=== PATIENT | female | born 1970 | race Caucasian/White ===

== ENCOUNTER 2017-02-09 17:34 | Emergency (ER) | payer OTHER ==
[2017-02-09] MEDS ORDERED: prednisoLONE Soln 15 MG/5 ML UD Cup PO ONE (18:08)
--- NOTE | 2017-02-09 18:08 | EDM.PDOC ---
ED HPI GENERAL MEDICAL PROBLEM - General Chief Complaint: ENT Problem Stated Complaint: PT HAS SORE THROAT Time Seen by Provider: 02/09/17 18:06 Source of Information: Reports: Patient History Limitations: Reports: No Limitations - History of Present Illness INITIAL COMMENTS - FREE TEXT/NARRATIVE: HISTORY AND PHYSICAL: [46-year-old female presenting with sore throat it has been waxing and waning for over a week History of Present Illness: [Has difficulty with swallowing] Review of Systems: As per history of present illness and below otherwise all systems reviewed and negative. Past medical history: As per history of present illness and as reviewed below otherwise noncontributory. Surgical history: As per history of present illness and as reviewed below otherwise noncontributory. Social history: No reported history of drug or alcohol abuse. Family history: As per history of present illness and as reviewed below otherwise noncontributory. Physical exam: Alert and oriented. Answering questions appropriately HEENT: Atraumatic, normocehpalic, pupils reactive, negative for conjunctival pallor or scleral icterus, mucous membranes moist, throat erythematous neck supple, tender, trachea midline. Lungs: Clear to auscultation, breath sounds equal bilaterally, chest non tender. Heart: S1S2, regular, negative for clicks, rubs, or JVD. Abdomen: Soft, nondistended, nontender. Negative for masses or hepatossplenmegaly. Negative for costovertebral tenderness. Pelvis: Stable nontender. Genitourinary: Deferred. Rectal: Deferred Extremities: Atraumatic, negative for cords or calf pain. Neurovascular unremarkable. Neuro: Awake, alert, oriented. Cranial nerves II through XII unremarkable. Cerebellum unremarkable. Motor and sensory unremarkable throughout. Exam nonfocal. Diagnostics: [] Therapeutics: [Prednisolone] Impression: [Acute pharyngitis] Plan: [Pen-Vee K Followup with PCP] Definitive disposition and diagnosis as appropriate pending reevaluation and review of above. Onset: Sudden Duration: Day(s): Location: Reports: Other (Throat) Quality: Reports: Throbbing Severity: Moderate Improves with: Reports: None Associated Symptoms: Reports: No Other Symptoms Throat Pain Score (Numeric/FACES): 5 - Related Data Allergies Allergy/AdvReac Type Severity Reaction Status Date / Time No Known Allergies Allergy Verified 02/09/17 17:48 Home Meds: Home Meds Penicillin V Potassium [IJD: Penicillin V Potassium] 500 mg PO .EVERY 6 HOURS # 30 tab 02/09/17 [Rx] Past Medical History - Past Health History Medical/Surgical History: Denies Medical/Surgical History Social & Family History - Family History Family Medical History: Noncontributory - Tobacco Use Smoking Status *Q: Current Every Day Smoker Years of Tobacco use: 30 Packs/Tins Daily: 1 Used Tobacco, but Quit: No - Caffeine Use Caffeine Use: Reports: None - Alcohol Use Days Per Week of Alcohol Use: 0 - Recreational Drug Use Recreational Drug Use: No ED ROS ENT - Review of Systems Review Of Systems: ROS reveals no pertinent complaints other than HPI. ED EXAM, ENT - Physical Exam Exam: See Below (See dictation) Course - Vital Signs Last Recorded V/S: Last Vital Signs Temp 36.6 C 02/09/17 17:45 Pulse 88 02/09/17 17:45 Resp 16 02/09/17 17:45 BP 113/79 02/09/17 17:45 Pulse Ox 97 02/09/17 17:45 - Orders/Labs/Meds Orders: Active Orders 24 hr Category Date Time Status CULTURE STREP A CONFIRMATION [RM] Stat Lab 02/09/17 17:45 Results STREP SCRN A RAPID W CULT CONF [RM] Stat Lab 02/09/17 17:45 Results Meds: Medications Discontinued Medications Generic Name Dose Route Start Last Admin Trade Name Fahadq PRN Reason Stop Dose Admin Prednisolone 30 mg 02/09/17 18:08 02/09/17 18:13 Orapred 15 Mg/5ml Soln PO 02/09/17 18:09 30 mg ONETIME ONE Administration Departure - Departure Time of Disposition: 18:25 Disposition: Home, Self-Care 01 Condition: good Clinical Impression: Pharyngitis Qualifiers: Pharyngitis/tonsillitis etiology: unspecified etiology Qualified Code(s): J02.9 - Acute pharyngitis, unspecified - Discharge Information Prescriptions: Penicillin V Potassium [IJD: Penicillin V Potassium] 500 mg PO .EVERY 6 HOURS # 30 tab Referrals: PCP,None [Primary Care Provider] - Forms: ED Department Discharge Additional Instructions: The following information is given to patients seen in the emergency department who are being discharged to home. This information is to outline your options for follow-up care. We provide all patients seen in our emergency department with a follow-up referral. The need for follow-up, as well as the timing and circumstances, are variable depending upon the specifics of your emergency department visit. If you don't have a primary care physician on staff, we will provide you with a referral. We always advise you to contact your personal physician following an emergency department visit to inform them of the circumstance of the visit and for follow-up with them and/or the need for any referrals to a consulting specialist. The emergency department will also refer you to a specialist when appropriate. This referral assures that you have the opportunity for followup care with a specialist. All of these measure are taken in an effort to provide you with optimal care, which includes your followup. Under all circumstances we always encourage you to contact your private physician who remains a resource for coordinating your care. When calling for followup care, please make the office aware that this follow-up is from your recent emergency room visit. If for any reason you are refused follow-up, please contact the [facility] emergency department at and asked to speak to the emergency department charge nurse. Discussion and written for Jaime Crowe every 6 hours With her primary care provider - My Orders Last 24 Hours: My Active Orders 02/09/17 17:45 CULTURE STREP A CONFIRMATION [RM] Stat STREP SCRN A RAPID W CULT CONF [RM] Stat - Assessment/Plan Last 24 Hours: My Active Orders 02/09/17 17:45 CULTURE STREP A CONFIRMATION [RM] Stat STREP SCRN A RAPID W CULT CONF [RM] Stat
[2017-02-09 19:13] VITALS: BP 117/70
== END 2017-02-09 18:32 | disposition home or self-care (01) ==
LOC: MW.ED 17:34
DX: J02.9 Acute pharyngitis, unspecified (principal); F17.210 Nicotine dependence, cigarettes, uncomplicated
CPT/HCPCS: 87081; 87880; 99283; A9270

== ENCOUNTER 2017-03-14 16:38 | Emergency (ER) | payer OTHER ==
[2017-03-14] MEDS ORDERED: Lidocaine 1% with EPINEPHrine 1:100,000 20 ML MDV INJECT ONE (16:50)
[2017-03-14] MEDS ORDERED: Ketorolac 60 MG/2 ML SDV IM ONE (16:54)
[2017-03-14 16:59] VITALS: BP 123/64
[2017-03-14] MEDS: cefTRIAXone 2,000 MG, Lidocaine 1% 2.1 ML IM ONE ×2 (17:22)
--- NOTE | 2017-03-14 17:37 | EDM.PDOC ---
ED HPI GENERAL MEDICAL PROBLEM - General Chief Complaint: Skin Complaint Stated Complaint: PT HAS BOIL ON BUTTOCKS Time Seen by Provider: 03/14/17 16:40 Source of Information: Reports: Patient History Limitations: Reports: No Limitations - History of Present Illness INITIAL COMMENTS - FREE TEXT/NARRATIVE: History of present illness: [46-year-old female comes in complaining of abscess to left buttock cheek. Indicates she had tried using hydrogen peroxide as well as hot packs and she feels now that she might need some antibiotics.] Review of systems: As per history of present illness and below otherwise all systems reviewed and negative. Past medical history: As per history of present illness and as reviewed below otherwise noncontributory. Surgical history: As per history of present illness and as reviewed below otherwise noncontributory. Social history: No reported history of drug or alcohol abuse. Family history: As per history of present illness and as reviewed below otherwise noncontributory. Physical exam: HEENT: Atraumatic, normocephalic, pupils reactive, negative for conjunctival pallor or scleral icterus, mucous membranes moist, throat clear, neck supple, nontender, trachea midline. Lungs: Clear to auscultation, breath sounds equal bilaterally, chest nontender. Heart: S1S2, regular, negative for clicks, rubs, or JVD. Abdomen: Soft, nondistended, nontender. Negative for masses or hepatosplenomegaly. Negative for costovertebral tenderness. Pelvis: Stable nontender. Genitourinary: Deferred. Rectal: Deferred. Extremities: Atraumatic, negative for cords or calf pain. Neurovascular unremarkable. Neuro: Awake, alert, oriented. Cranial nerves II through XII unremarkable. Cerebellum unremarkable. Motor and sensory unremarkable throughout. Exam nonfocal. Skin: 2 cm round indurated erythematous abscess with some fluctuance noted. Area cleaned with Betadine and prepped with lidocaine 1% with epi injected until anesthesia was appreciated subsequently an 11 blade used to make a incision of approximately 1 cm long with moderate amount of purulent thick waxy discharge culture obtained area packed with one-inch tape gauze. Antibiotics given Diagnostics: [Culture] Therapeutics: [I&D, ceftriaxone 2 g, Toradol 60 mg IM, lidocaine with epi] Impression: [Abscess] Plan: [Bactrim brief run of pain medicine] Definitive disposition and diagnosis as appropriate pending reevaluation and review of above. 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: Musculoskeletal History: Reports: None Neurological History: Reports: None Psychiatric History: Reports: None Endocrine/Metabolic History: Reports: None Hematologic History: Reports: None Immunologic History: Reports: None Dermatologic History: Reports: None - Infectious Disease History Infectious Disease History: Reports: None - Past Surgical History Female Surgical History: Reports: Cystectomy Social & Family History - Family History Family Medical History: Noncontributory - Tobacco Use Smoking Status *Q: Current Every Day Smoker Years of Tobacco use: 30 Packs/Tins Daily: 0.7 Used Tobacco, but Quit: No - Caffeine Use Caffeine Use: Reports: None - Alcohol Use Days Per Week of Alcohol Use: 0 - Recreational Drug Use Recreational Drug Use: No ED ROS GENERAL - Review of Systems Review Of Systems: See Below (See history of present illness) ED EXAM, SKIN/RASH Exam: See Below (See history of present illness) Course - Vital Signs Last Recorded V/S: Last Vital Signs Temp 36.6 C 03/14/17 16:50 Pulse 92 03/14/17 16:50 Resp 18 03/14/17 16:50 BP 123/64 03/14/17 16:50 Pulse Ox 96 03/14/17 16:50 - Orders/Labs/Meds Meds: Medications Discontinued Medications Generic Name Dose Route Start Last Admin Trade Name Freq PRN Reason Stop Dose Admin Ceftriaxone Sodium 2,000 mg/ 0 mg 03/14/17 16:54 03/14/17 17:22 Lidocaine HCl 2.1 ml IM 03/14/17 16:55 1 gm ONETIME ONE Administration Ketorolac Tromethamine 60 mg 03/14/17 16:54 03/14/17 17:18 Toradol IM 03/14/17 16:55 60 mg ONETIME ONE Administration Lidocaine/Epinephrine 20 ml 03/14/17 16:50 03/14/17 17:16 Xylocaine 1% With Epinephrine 1:100,000 INJECT 03/14/17 16:51 20 ml ONETIME ONE Administration Departure - Departure Time of Disposition: 17:36 Disposition: Home, Self-Care 01 Condition: Good Clinical Impression: Abscess - Discharge Information Forms: ED Department Discharge Additional Instructions: The following information is given to patients seen in the emergency department who are being discharged to home. This information is to outline your options for follow-up care. We provide all patients seen in our emergency department with a follow-up referral. The need for follow-up, as well as the timing and circumstances, are variable depending upon the specifics of your emergency department visit. If you don't have a primary care physician on staff, we will provide you with a referral. We always advise you to contact your personal physician following an emergency department visit to inform them of the circumstance of the visit and for follow-up with them and/or the need for any referrals to a consulting specialist. The emergency department will also refer you to a specialist when appropriate. This referral assures that you have the opportunity for follow-up care with a specialist. All of these measure are taken in an effort to provide you with optimal care, which includes your follow-up. Under all circumstances we always encourage you to contact your private physician who remains a resource for coordinating your care. When calling for follow-up care, please make the office aware that this follow-up is from your recent emergency room visit. If for any reason you are refused follow-up, please contact the [facility] Emergency Department at and asked to speak to the emergency department charge nurse. Take medication as directed Follow-up with the PCP 1-2 days Return to ED as needed as discussed My family practice
== END 2017-03-14 17:51 | disposition home or self-care (01) ==
LOC: MW.ED 16:38
DX: L02.31 Cutaneous abscess of buttock (principal); F17.210 Nicotine dependence, cigarettes, uncomplicated
CPT/HCPCS: 10061; 87070; 87077; 87186; 96372; 99283; J0696; J1885

== ENCOUNTER 2017-05-18 13:45 | Emergency (ER) | payer OTHER ==
[2017-05-18 14:25] VITALS: BP 135/85
== END 2017-05-18 14:30 | disposition left against medical advice (07) ==
LOC: MW.ED 13:45
DX: Z53.21 Procedure and treatment not carried out due to patient leaving prior to being seen by health care provider (principal)
CPT/HCPCS: 99281

== ENCOUNTER 2017-07-16 17:56 | Observation (INO) | payer MEDICAID, OTHER ==
[2017-07-16] MEDS ORDERED: Sodium Chloride 0.9% 10 ML Syringe FLUSH PRN (18:35)
[2017-07-16] MEDS ORDERED: Sodium Chloride 0.9% 1,000 ML IV ONE (18:35)
[2017-07-16] MEDS ORDERED: Sodium Chloride 0.9% 2.5 ML Syringe FLUSH PRN (18:35)
--- NOTE | 2017-07-16 18:40 | EDM.PDOC ---
ED HPI GENERAL MEDICAL PROBLEM - General Chief Complaint: Syncope Stated Complaint: TROUBLE BREATHING Time Seen by Provider: 07/16/17 18:28 - History of Present Illness INITIAL COMMENTS - FREE TEXT/NARRATIVE: HISTORY AND PHYSICAL: History of present illness: The patient is a 46-year-old female who presents via EMS after having a syncopal event this evening. Patient says she had a normal day but did not eat very much today having only a peanut butter rollup and small amount of liquid and she says that she was in her garage when she started feeling lightheaded held onto something and then passed out A neighbor found her and called EMS. On their arrival she was awake alert and oriented and had no complaints. Patient in the ED denies any complaints of headache neck or back pain chest pain shortness of breath abdominal pain nausea vomiting or extremity complaints. She has had no urine complaints over the last few days no nausea or vomiting no fevers or chills or upper respiratory symptoms. Patient has no neurosensory changes in her extremities. Patient that she has never had a syncopal event before. Patient states she smokes cigarettes and denies drug use. Patient currently feels at her baseline. Review of systems: As per history of present illness and below otherwise all systems reviewed and negative. Past medical history: As per history of present illness and as reviewed below otherwise noncontributory. Surgical history: As per history of present illness and as reviewed below otherwise noncontributory. Social history: No reported history of drug or alcohol abuse. Family history: As per history of present illness and as reviewed below otherwise noncontributory. Physical exam: General: Well-developed well-nourished female who moves easily in the ED without distress. Vital signs been reviewed by me. HEENT: Atraumatic, normocephalic, pupils reactive, negative for conjunctival pallor or scleral icterus, mucous membranes moist, throat clear, neck supple, nontender, trachea midline. there is no scalp tenderness defects or deformities and there are no midline step-offs in his defects of the cervical spine Lungs: Clear to auscultation, breath sounds equal bilaterally, chest nontender. Heart: S1S2, regular rate and rhythm no overt murmurs Abdomen: Soft, nondistended, nontender. Negative for masses or hepatosplenomegaly. Negative for costovertebral tenderness. Pelvis: Stable nontender. Genitourinary: Deferred. Rectal: Deferred. Extremities: Atraumatic, negative for cords or calf pain. Neurovascular unremarkable. range of motion without defects or deficits Neuro: Awake, alert, oriented. Cranial nerves II through XII unremarkable. Cerebellum unremarkable. Motor and sensory unremarkable throughout. Exam nonfocal. manager software strength is intact bilaterally 5/5, dorsi and plantar flexion is intact 5/5 inclusive of the great toe, there is no evidence of any drift seen and speech is intact. Back: There are no midline step-offs in his defects of the thoracic or lumbar spine no posterior rib tenderness no posterior pelvis tenderness and no visible evidence of any soft tissue traumatic injury such as abrasions contusions or ecchymosis. Skin: There are no soft tissue injury seen head to toe and turgor is normal Diagnostics: EKG orthostatic vitals CBC CMP INR and d-dimer troponin TSH UA chest x-ray CT scan of the head Therapeutics: IV O2 monitor IV fluids 1904: Case was discussed with our hospitalist, Dr. Elder, who accepts the patient for observation admission. We are currently awaiting the CMP TSH and UA results. He will follow up these test results. I discussed all testing results with the patient who is aware of my concerns and need for admission and accepts Impression: Syncopal event Definitive disposition and diagnosis as appropriate pending reevaluation and review of above. - Related Data Allergies Allergy/AdvReac Type Severity Reaction Status Date / Time No Known Allergies Allergy Verified 07/16/17 18:01 Home Meds: Home Meds . 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: Musculoskeletal History: Reports: None Neurological History: Reports: None Psychiatric History: Reports: None Endocrine/Metabolic History: Reports: None Hematologic History: Reports: None Immunologic History: Reports: None Oncologic (Cancer) History: Reports: None Dermatologic History: Reports: None - Infectious Disease History Infectious Disease History: Reports: None - Past Surgical History Head Surgeries/Procedures: Reports: None HEENT Surgical History: Reports: None Cardiovascular Surgical History: Reports: None Respiratory Surgical History: Reports: None GI Surgical History: Reports: None Female Surgical History: Reports: Cystectomy Musculoskeletal Surgical History: Reports: None Oncologic Surgical History: Reports: None Social & Family History - Family History Family Medical History: Noncontributory - Tobacco Use Smoking Status *Q: Current Every Day Smoker Years of Tobacco use: 40 Packs/Tins Daily: 0.5 Used Tobacco, but Quit: No - Caffeine Use Caffeine Use: Reports: None - Alcohol Use Days Per Week of Alcohol Use: 0 - Recreational Drug Use Recreational Drug Use: No ED ROS GENERAL - Review of Systems Review Of Systems: ROS reveals no pertinent complaints other than HPI. ED EXAM, GENERAL - Physical Exam Exam: See Below (See dictation) Course - Vital Signs Last Recorded V/S: Last Vital Signs Temp 36.1 C 07/16/17 18:01 Pulse 94 07/16/17 18:01 Resp 18 07/16/17 18:01 BP 113/70 07/16/17 18:01 Pulse Ox 96 07/16/17 18:01 Orthostatic Blood Pressure [ 119/68 Standing] Orthostatic Blood Pressure [ 124/68 Sitting] Orthostatic Blood Pressure [ 113/70 Supine] - Orders/Labs/Meds Orders: Active Orders 24 hr Category Date Time Status Patient Status [ADT] Stat ADT 07/16/17 19:27 Ordered Cardiac Monitoring [RC] . DIRECTED Care 07/16/17 18:34 Active EKG Documentation Completion [RC] STAT Care 07/16/17 18:34 Active Orthostatic Vital Signs [RC] ASDIRECTED Care 07/16/17 18:35 Active Oxygen Therapy, ED [RC] ASDIRECTED Care 07/16/17 18:34 Active Pulse Oximetry [RC] ASDIRECTED Care 07/16/17 18:34 Active Chest 1V Frontal [CR] Stat Exams 07/16/17 18:35 Taken Head wo Cont [CT] Stat Exams 07/16/17 18:35 Taken COMPREHENSIVE METABOLIC PN,CMP [CHEM] Stat Lab 07/16/17 18:44 Results TROPONIN I [CHEM] Stat Lab 07/16/17 18:44 Results TSH [CHEM] Stat Lab 07/16/17 18:44 Results UA W/MICROSCOPIC [URIN] Stat Lab 07/16/17 18:35 Uncollected Sodium Chloride 0.9% [Normal Saline] 1,000 ml Med 07/16/17 18:35 Active IV STAT Sodium Chloride 0.9% [Saline Flush] Med 07/16/17 18:35 Active 10 ml FLUSH ASDIRECTED PRN Sodium Chloride 0.9% [Saline Flush] Med 07/16/17 18:35 Active 2.5 ml FLUSH ASDIRECTED PRN Saline Lock Insert [OM.PC] Stat Oth 07/16/17 18:34 Ordered Medication Orders Sodium Chloride (Normal Saline) 1,000 mls @ 999 mls/hr IV STAT ONE Stop: 07/16/17 19:35 Sodium Chloride (Saline Flush) 10 ml FLUSH ASDIRECTED PRN PRN Reason: Keep Vein Open Sodium Chloride (Saline Flush) 2.5 ml FLUSH ASDIRECTED PRN PRN Reason: Keep Vein Open Labs: Laboratory Tests 07/16/17 07/16/17 07/16/17 Range/Units 18:44 18:44 18:44 WBC 15.46 H (4.0-11.0) K/uL RBC 5.09 (4.30-5.90) M/uL Hgb 15.0 (12.0-16.0) g/dL Hct 44.9 (36.0-46.0) % MCV 88.2 (80.0-98.0) fL MCH 29.5 (27.0-32.0) pg MCHC 33.4 (31.0-37.0) g/dL RDW Std Deviation 42.9 (28.0-62.0) fl RDW Coeff of Gilda 13 (11.0-15.0) % Plt Count 266 (150-400) K/uL MPV 10.90 (7.40-12.00) fL Neut % (Auto) 81.0 H (48.0-80.0) % Lymph % (Auto) 11.6 L (16.0-40.0) % [place] % (Auto) 5.9 (0.0-15.0) % Eos % (Auto) 1.2 (0.0-7.0) % Baso % (Auto) 0.3 (0.0-1.5) % Neut # (Auto) 12.5 H (1.4-5.7) K/uL Lymph # (Auto) 1.8 (0.6-2.4) K/uL [place] # (Auto) 0.9 H (0.0-0.8) K/uL Eos # (Auto) 0.2 (0.0-0.7) K/uL Baso # (Auto) 0.0 (0.0-0.1) K/uL Nucleated RBC % 0.0 /100WBC Nucleated RBCs # 0 K/uL INR 1.05 (0.86-1.11) D-Dimer, Quantitative 0.24 (0.0-0.52) mg/LFEU Sodium 137 (136-146) mmol/L Potassium 4.0 (3.5-5.1) mmol/L Chloride 106 (98-110) mmol/L Carbon Dioxide 25 (21-31) mmol/L BUN 14 (6.0-23.0) mg/dL Creatinine 0.8 (0.6-1.5) mg/dL Est Cr Clr Drug Dosing 100.85 mL/min Estimated GFR (MDRD) > 60.0 ml/min Glucose 108 (60-110) mg/dL Calcium 9.3 (8.8-10.8) mg/dL Total Bilirubin 0.4 (0.1-1.5) mg/dL AST 16 (5-40) IU/L ALT 14 (8-54) IU/L Alkaline Phosphatase 76 (40-150) Troponin I < 0.10 (0.0-0.29) NG/ML Total Protein 7.1 (6.0-8.0) g/dL Albumin 4.0 (3.5-5.0) g/dL Globulin 3.1 (2.0-3.5) g/dL Albumin/Globulin Ratio 1.3 (1.3-2.8) Meds: Medications Generic Name Dose Route Start Last Admin Trade Name Freq PRN Reason Stop Dose Admin Sodium Chloride 1,000 mls @ 999 mls/hr 07/16/17 18:35 Normal Saline IV 07/16/17 19:35 STAT ONE Sodium Chloride 10 ml 07/16/17 18:35 Saline Flush FLUSH ASDIRECTED PRN Keep Vein Open Sodium Chloride 2.5 ml 07/16/17 18:35 Saline Flush FLUSH ASDIRECTED PRN Keep Vein Open Departure - Departure Time of Disposition: 19:29 Disposition: Refer to Observation Condition: Good Clinical Impression: Syncope Qualifiers: Syncope type: unspecified Qualified Code(s): R55 - Syncope and collapse - Discharge Information Forms: ED Department Discharge - My Orders Last 24 Hours: My Active Orders 07/16/17 18:34 Cardiac Monitoring [RC] . DIRECTED EKG Documentation Completion [RC] STAT Oxygen Therapy, ED [RC] ASDIRECTED Pulse Oximetry [RC] ASDIRECTED Saline Lock Insert [OM.PC] Stat 07/16/17 18:35 Orthostatic Vital Signs [RC] ASDIRECTED Chest 1V Frontal [CR] Stat Head wo Cont [CT] Stat UA W/MICROSCOPIC [URIN] Stat Sodium Chloride 0.9% [Normal Saline] 1,000 ml IV STAT Sodium Chloride 0.9% [Saline Flush] 10 ml FLUSH ASDIRECTED PRN Sodium Chloride 0.9% [Saline Flush] 2.5 ml FLUSH ASDIRECTED PRN 07/16/17 18:44 COMPREHENSIVE METABOLIC PN,CMP [CHEM] Stat TROPONIN I [CHEM] Stat TSH [CHEM] Stat 07/16/17 19:27 Patient Status [ADT] Stat - Assessment/Plan Last 24 Hours: My Active Orders 07/16/17 18:34 Cardiac Monitoring [RC] . DIRECTED EKG Documentation Completion [RC] STAT Oxygen Therapy, ED [RC] ASDIRECTED Pulse Oximetry [RC] ASDIRECTED Saline Lock Insert [OM.PC] Stat 07/16/17 18:35 Orthostatic Vital Signs [RC] ASDIRECTED Chest 1V Frontal [CR] Stat Head wo Cont [CT] Stat UA W/MICROSCOPIC [URIN] Stat Sodium Chloride 0.9% [Normal Saline] 1,000 ml IV STAT Sodium Chloride 0.9% [Saline Flush] 10 ml FLUSH ASDIRECTED PRN Sodium Chloride 0.9% [Saline Flush] 2.5 ml FLUSH ASDIRECTED PRN 07/16/17 18:44 COMPREHENSIVE METABOLIC PN,CMP [CHEM] Stat TROPONIN I [CHEM] Stat TSH [CHEM] Stat 07/16/17 19:27 Patient Status [ADT] Stat
[2017-07-16 19:27] LABS: CHLORIDE,CL 106 mmol/L (98-110); SODIUM,NA 137 mmol/L (136-146)
[2017-07-16] MEDS ORDERED: Ondansetron 4 MG Tab.DIS PO PRN (20:28)
--- NOTE | 2017-07-16 20:39 | PCM.HP ---
H&P History of Present Illness - General Date of Service: 07/16/17 Admit Problem/Dx: Admission Diagnosis/Problem Admission Diagnosis/Problem Syncope Source of Information: Patient History Limitations: Reports: No Limitations - History of Present Illness Initial Comments - Free Text/Narative: 46 year old female with no significant history presented to the ER after having a syncopal episode. As per the patient, she was outside a friends house earlier today when she passed out. She says her noticed the episode and she was unconscious for "20 seconds". She denies head trauma. Denies any chest pain. Denies a history of seizures. States that she never had a peanut butter roll up around noon today. Hasnt had anything else to eat today. Currently has no complaints. Denies headaches, confusion, nausea, chest pain, palpitations. ER Course: orthostatic vital signs normal CT head normal CXR normal UA pending EKG normal sinus Fluid bolus x1 Admit for observation for syncope workup - Related Data Allergies/Adverse Reactions: Allergies Allergy/AdvReac Type Severity Reaction Status Date / Time No Known Allergies Allergy Verified 07/16/17 18:01 Home Medications: Home Meds . [No Known Home Meds] 05/18/17 [History] Past Medical History - Past Health History Medical/Surgical History: Denies Medical/Surgical History HEENT History: Reports: None Cardiovascular History: Reports: None Respiratory History: Reports: None Gastrointestinal History: Reports: None Genitourinary History: Reports: None [employer] History: Reports: Musculoskeletal History: Reports: None Neurological History: Reports: None Psychiatric History: Reports: None Endocrine/Metabolic History: Reports: None Hematologic History: Reports: None Immunologic History: Reports: None Oncologic (Cancer) History: Reports: None Dermatologic History: Reports: None - Infectious Disease History Infectious Disease History: Reports: None - Past Surgical History Head Surgeries/Procedures: Reports: None HEENT Surgical History: Reports: None Cardiovascular Surgical History: Reports: None Respiratory Surgical History: Reports: None GI Surgical History: Reports: None Female Surgical History: Reports: Cystectomy Musculoskeletal Surgical History: Reports: None Oncologic Surgical History: Reports: None Social & Family History - Family History Family Medical History: Noncontributory - Tobacco Use Smoking Status *Q: Current Every Day Smoker Years of Tobacco use: 40 Packs/Tins Daily: 0.5 Used Tobacco, but Quit: No - Caffeine Use Caffeine Use: Reports: None - Alcohol Use Days Per Week of Alcohol Use: 0 - Recreational Drug Use Recreational Drug Use: No H&P Review of Systems - Review of Systems: Review Of Systems: See Below General: Reports: No Symptoms HEENT: Reports: No Symptoms Pulmonary: Reports: No Symptoms Cardiovascular: Reports: No Symptoms Gastrointestinal: Reports: No Symptoms Genitourinary: Reports: No Symptoms Musculoskeletal: Reports: No Symptoms Skin: Reports: No Symptoms Psychiatric: Reports: No Symptoms Neurological: Reports: Syncope, Other (see HPI) Hematologic/Lymphatic: Reports: No Symptoms Immunologic: Reports: No Symptoms Exam - Exam Exam: See Below - Vital Signs Vital Signs: Last Vital Signs Temp 36.1 C 07/16/17 18:01 Pulse 94 07/16/17 18:01 Resp 18 07/16/17 18:01 BP 113/70 07/16/17 18:01 Pulse Ox 96 07/16/17 18:01 Weight: 72.7 kg - Exam General: Alert, Oriented HEENT: Conjunctiva Clear, EOMI Neck: Supple, Trachea Midline Lungs: Clear to Auscultation, Normal Respiratory Effort Cardiovascular: Regular Rate, Regular Rhythm GI/Abdominal Exam: Normal Bowel Sounds, Soft, Non-Tender, No Organomegaly Back Exam: Normal Inspection, Full Range of Motion. No: CVA Tenderness (L), CVA Tenderness (R) Extremities: Normal Inspection, No Pedal Edema, Normal Capillary Refill Peripheral Pulses: 2+: Dorsalis Pedis (L), Dorsalis Pedis (R) Skin: Warm, Intact Neurological: Cranial Nerves Intact, Normal Speech, Normal Tone Neuro Extensive - Mental Status: Alert, Oriented x3, Normal Mood/Affect, Normal Cognition, Memory Intact Neuro Extensive - Motor, Sensory, Reflexes: CN II-XII Intact Psychiatric: Alert, Normal Affect, Normal Mood - Patient Data Result Diagrams: 07/16/17 18:44 07/16/17 18:44 *Q Meaningful Use (ADM) - VTE *Q VTE Criteria *Q: - Stroke *Q Stroke Criteria *Q: - AMI *Q AMI Criteria *Q: Problem List Initiated/Reviewed/Updated: Yes Orders Last 24hrs: Active Orders 24 hr Category Date Time Status Antiembolic Devices [RC] PER UNIT ROUTINE Care 07/16/17 20:31 Ordered Oxygen Therapy [RC] PRN Care 07/16/17 20:28 Ordered Telemetry Monitoring [Cardiac Monitoring] [RC] . Care 07/16/17 20:31 Ordered DIRECTED Up ad Reba [RC] ASDIRECTED Care 07/16/17 20:28 Ordered Vital Signs [RC] Q4H Care 07/16/17 20:28 Ordered Regular Diet [DIET] Diet 07/16/17 Breakfast Ordered BASIC METABOLIC PANEL,BMP [CHEM] AM Lab 07/17/17 05:11 Ordered CBC WITH AUTO DIFF [HEME] AM Lab 07/17/17 05:11 Ordered Enoxaparin [Lovenox] Med 07/16/17 20:30 Ordered 40 mg SUBCUT DAILY Nicotine [Habitrol] Med 07/16/17 20:30 Ordered 21 mg TRDERM DAILY Ondansetron [Zofran ODT] Med 07/16/17 20:28 Ordered 4 mg PO Q4H PRN Sodium Chloride 0.9% @ 125 MLS/HR (1000ml) Med 07/16/17 20:30 Ordered Sodium Chloride 0.9% [Normal Saline] 1,000 ml IV ASDIRECTED Sequential Compression Device [OM.PC] Per Unit Routine Oth 07/16/17 20:30 Ordered Resuscitation Status Routine Resus Stat 07/16/17 20:28 Ordered Medication Orders Enoxaparin Sodium (Lovenox) 40 mg SUBCUT DAILY [facility] Sodium Chloride (Normal Saline) 1,000 mls @ 125 mls/hr IV ASDIRECTED [facility] Nicotine (Habitrol) 21 mg TRDERM DAILY [facility] Ondansetron HCl (Zofran Odt) 4 mg PO Q4H PRN PRN Reason: nausea, able to take PO Sodium Chloride (Saline Flush) 10 ml FLUSH ASDIRECTED PRN PRN Reason: Keep Vein Open Sodium Chloride (Saline Flush) 2.5 ml FLUSH ASDIRECTED PRN PRN Reason: Keep Vein Open Assessment/Plan Comment:: Assessment: #1. Syncope #2. Leukocytosis #3. History of tobacco abuse Plan: #1. Admit to the floor for observation #2. Cardiac telemetry #3. Vital signs per floor routine #4. CBC, BMP tomorrow AM #5. Lovenox dvt prophylaxis #6. nicotine 21mg patch #7. follow up UA as this could possibly be a culprit for leukocytosis. #8. IVNS 125ml/hr #9. Anticipate discharge tomorrow.
[2017-07-16] MEDS: Nicotine 21 MG/24 Hr Patch TRDERM SCH (20:54)
[2017-07-16] MEDS: Enoxaparin 40 MG/0.4 ML Syringe SUBCUT SCH (20:54)
[2017-07-16] MEDS: Sodium Chloride 0.9% 1,000 ML IV SCH (20:55)
[2017-07-16] MEDS ORDERED: cefTRIAXone 1,000 MG in Sodium Chloride 0.9% 50 ML IV SCH (22:30)
[2017-07-16] MEDS ORDERED: cefTRIAXone 1 GM in Premix Bag 1 BAG IV SCH (22:30)
[2017-07-17] MEDS: Sodium Chloride 0.9% 1,000 ML IV SCH (03:53)
[2017-07-17 06:11] LABS: CHLORIDE,CL 108 mmol/L (98-110); SODIUM,NA 140 mmol/L (136-146)
[2017-07-17 07:50] VITALS: BP 124/78
[2017-07-17] MEDS: Enoxaparin 40 MG/0.4 ML Syringe SUBCUT SCH (08:21)
[2017-07-17] MEDS: Nicotine 21 MG/24 Hr Patch TRDERM SCH (08:21)
--- NOTE | 2017-07-17 09:56 | PCM.DCSUM1 ---
Discharge Summary - Hospital Course Free Text/Narrative:: Admission date July 16, 2017 Discharge date July 17, 2017 Admission diagnosis: #1. Syncope #2. Leukocytosis #3. History of tobacco abuse Discharge diagnoses: #1. Syncope with symptoms resolved #2. Leukocytosis resolved #3. Urine tract infection #4. History of tobacco abuse Hospital course: 46-year-old female with no significant past history presented to the emergency department after having a syncopal episode outside while at a friend's house. As per the patient, she had not had much to eat prior to the event. She presented to the emergency room with no significant complaints. She denied any confusion, dizziness, lightheadedness. She was admitted for observation. Patient had no events on telemetry. EKG was normal. Urinalysis indicated a urinary tract infection for which she received 1 g of Rocephin while in the hospital. She is to be discharged on Keflex 500 mg by mouth every 12 hours for another 6 days. Patient is advised to return if she experiences any similar symptoms such as passing out, lightheadedness, dizziness. Patient agrees to the plan. Follow-up with Dr. Dodd within one week - Discharge Data Discharge Date: 07/17/17 Discharge Disposition: Home, Self-Care 01 Condition: Fair - Patient Instructions Diet: Regular Diet as Tolerated Activity: As Tolerated Driving: May Drive Today Showering/Bathing: May Shower Other/Special Instructions: Return if you experience dizziness, lightheadedness , or another episode of passing out - Discharge Plan Prescriptions/Med Rec: Cephalexin [Keflex] 500 mg PO Q12HR 6 Days #12 cap Home Medications: Home Meds Cephalexin [Keflex] 500 mg PO Q12HR 6 Days #12 cap 07/17/17 [Rx] Forms: ED Department Discharge Referrals: PCP,None [Primary Care Provider] - Buster Dodd MD [Emergency Provider] - - Discharge Summary/Plan Comment DC Time >30 min.: No Discharge Summary/Plan Comment: Admission date July 16, 2017 Discharge date July 17, 2017 Admission diagnosis: #1. Syncope #2. Leukocytosis #3. History of tobacco abuse Discharge diagnoses: #1. Syncope with symptoms resolved #2. Leukocytosis resolved #3. Urine tract infection #4. History of tobacco abuse Hospital course: 46-year-old female with no significant past history presented to the emergency department after having a syncopal episode outside while at a friend's house. As per the patient, she had not had much to eat prior to the event. She presented to the emergency room with no significant complaints. She denied any confusion, dizziness, lightheadedness. She was admitted for observation. Patient had no events on telemetry. EKG was normal. Urinalysis indicated a urinary tract infection for which she received 1 g of Rocephin while in the hospital. She is to be discharged on Keflex 500 mg by mouth every 12 hours for another 6 days. Patient is advised to return if she experiences any similar symptoms such as passing out, lightheadedness, dizziness. Patient agrees to the plan. Follow-up with Dr. Dodd within one week - Patient Data Vitals - Most Recent: Last Vital Signs Temp 37.0 C 07/17/17 07:47 Pulse 76 07/17/17 07:47 Resp 14 07/17/17 07:47 BP 124/78 07/17/17 07:47 Pulse Ox 98 07/17/17 07:47 Weight - Most Recent: 72.7 kg I&O - Last 24 hours: Intake & Output 07/16/17 07/17/17 07/17/17 22:59 06:59 14:59 Intake Total 1935 Output Total 775 Balance 1160 Lab Results - Last 24 hrs: Laboratory Results - last 24 hr 07/16/17 07/17/17 07/17/17 Range/Units 21:15 05:34 05:34 WBC 10.70 (4.0-11.0) K/uL RBC 4.36 (4.30-5.90) M/uL Hgb 12.8 (12.0-16.0) g/dL Hct 38.1 (36.0-46.0) % MCV 87.4 (80.0-98.0) fL MCH 29.4 (27.0-32.0) pg MCHC 33.6 (31.0-37.0) g/dL RDW Std Deviation 42.9 (28.0-62.0) fl RDW Coeff of Gilda 13 (11.0-15.0) % Plt Count 247 (150-400) K/uL MPV 10.80 (7.40-12.00) fL Neut % (Auto) 61.1 (48.0-80.0) % Lymph % (Auto) 28.4 (16.0-40.0) % [place] % (Auto) 7.3 (0.0-15.0) % Eos % (Auto) 2.9 (0.0-7.0) % Baso % (Auto) 0.3 (0.0-1.5) % Neut # (Auto) 6.5 H (1.4-5.7) K/uL Lymph # (Auto) 3.0 H (0.6-2.4) K/uL [place] # (Auto) 0.8 (0.0-0.8) K/uL Eos # (Auto) 0.3 (0.0-0.7) K/uL Baso # (Auto) 0.0 (0.0-0.1) K/uL Nucleated RBC % 0.0 /100WBC Nucleated RBCs # 0 K/uL Sodium 140 (136-146) mmol/L Potassium 3.7 (3.5-5.1) mmol/L Chloride 108 (98-110) mmol/L Carbon Dioxide 27 (21-31) mmol/L BUN 14 (6.0-23.0) mg/dL Creatinine 0.7 (0.6-1.5) mg/dL Est Cr Clr Drug Dosing 115.25 mL/min Estimated GFR (MDRD) > 60.0 ml/min Glucose 101 (60-110) mg/dL Calcium 8.3 L (8.8-10.8) mg/dL Magnesium 1.6 (1.5-2.3) mEq/L Urine Color YELLOW Urine Appearance SLT CLOUDY Urine pH 6.0 (5.0-8.0) Ur Specific [place] 1.025 (1.001-1.035) Urine Protein NEGATIVE (NEGATIVE) mg/dL Urine Glucose (UA) NEGATIVE (NEGATIVE) mg/dL Urine Ketones NEGATIVE (NEGATIVE) mg/dL Urine Occult Blood TRACE-INTACT (NEGATIVE) Urine Nitrite POSITIVE H (NEGATIVE) Urine Bilirubin NEGATIVE (NEGATIVE) Urine Urobilinogen 0.2 (<2.0) EU/dL Ur Leukocyte Esterase TRACE (NEGATIVE) Urine RBC 0-2 (0-2/HPF) Urine WBC 3-5 (0-5/HPF) Ur Epithelial Cells MODERATE (NONE-FEW) Amorphous Sediment LIGHT (NEGATIVE) Urine Bacteria 1+ H (NEGATIVE) Med Orders - Current: Current Medications Enoxaparin Sodium (Lovenox) 40 mg SUBCUT DAILY [facility] Last Admin: 07/17/17 08:21 Dose: 40 mg Sodium Chloride (Normal Saline) 1,000 mls @ 125 mls/hr IV ASDIRECTED [facility] Last Admin: 07/17/17 03:53 Dose: 125 mls/hr Ceftriaxone Sodium/Dextrose 1 (gm/ Premix) 50 mls @ 100 mls/hr IV Q24H [facility] Last Admin: 07/16/17 22:45 Dose: 100 mls/hr Nicotine (Habitrol) 21 mg TRDERM DAILY [facility] Last Admin: 07/17/17 08:21 Dose: 21 mg Ondansetron HCl (Zofran Odt) 4 mg PO Q4H PRN PRN Reason: nausea, able to take PO Sodium Chloride (Saline Flush) 10 ml FLUSH ASDIRECTED PRN PRN Reason: Keep Vein Open Sodium Chloride (Saline Flush) 2.5 ml FLUSH ASDIRECTED PRN PRN Reason: Keep Vein Open Discontinued Medications Sodium Chloride (Normal Saline) 1,000 mls @ 999 mls/hr IV STAT ONE Stop: 07/16/17 19:35 Last Admin: 07/16/17 19:45 Dose: 999 mls/hr Ceftriaxone Sodium 1,000 mg/ (Sodium Chloride) 50 mls @ 200 mls/hr IV Q24H [facility] *Q Meaningful Use (DIS) - VTE *Q VTE Criteria *Q: - Stroke *Q Stroke Criteria *Q: - AMI *Q AMI Criteria *Q:
--- NOTE | 2017-07-18 13:19 | CT ---
EXAM DATE: 07/16/17 PATIENT'S AGE: 46 Patient: GALLITO JORDAN Facility: [place], [place] Site . Site : 1970 Study: CT Head WO CONT [id number] 7:03:48 PM Ordering Physician: Ananda Gibbons Final Report: INDICATION: LIGHTHEADED, FAINTED TONIGHT, UNSURE IF HIT HEAD TECHNIQUE: CT Head without i.v. contrast. COMPARISON: MRI 03/26/2008 FINDINGS: CSF spaces: Within normal limits for age. Brain parenchyma: The brain parenchyma is normal in appearance with preservation of the solis-white matter junction. No sign of mass, hemorrhage, or midline shift. Skull base and calvarium: The visualized paranasal sinuses are well aerated. The mastoid air cells are clear. The visualized orbits are grossly unremarkable. No skull fractures are seen. IMPRESSION: 1. No CT evidence of acute infarct, hemorrhage, or mass effect seen. Dictated by: Juanito Leo MD @ 07/16/2017 19:16:19 (Electronic Signature) Report Signed by Proxy. JACOBI MEDICAL CENTERJimmy
--- NOTE | 2017-07-18 13:20 | CR ---
EXAM DATE: 07/16/17 PATIENT'S AGE: 46 Patient: GALLITO JORDAN Facility: [place], [place] Site . Site : 1970 Study: XRay Chest [id number] 7:11:15 PM Ordering Physician: Ananda Gibbons Final Report: INDICATION: Chest pain. Shortness of breath. TECHNIQUE: Chest 1 view. COMPARISON: None FINDINGS: Cardiovascular and mediastinum: Heart size and vasculature are normal in caliber and appearance. Mediastinum is within normal limits. Lungs and pleural space: Lungs are clear. No pleural effusion. No pneumothorax. Bones and soft tissues: No acute findings. IMPRESSION: No acute abnormality. Dictated by Gustavo Ca MD @ Jul 16 2017 7:20PM (Electronic Signature) Report Signed by Proxy. STEVE
== END 2017-07-17 10:34 | disposition home or self-care (01) ==
LOC: MW.ED 17:56 → MW.MS 19:27 → EEVIPCON 19:27 → MW.ED 19:47
PROVIDERS: ADMIT Family Medicine; ATTEND Family Medicine
DX: R55 Syncope and collapse (principal); D72.829 Elevated white blood cell count, unspecified; N39.0 Urinary tract infection, site not specified; F17.210 Nicotine dependence, cigarettes, uncomplicated
CPT/HCPCS: 36415; 70450; 71010; 80048; 80053; 81001; 83735; 84443; 84484; 85025; 85379; 85610; 87086; 87088; 87186; 93005; 99285; A9270; J0696; J1650; J7040; 96361; 96365; 96372; 99283; G0378

== ENCOUNTER 2022-06-13 02:47 | Emergency (ER) | payer OTHER, MEDICAID ==
[2022-06-13] MEDS ORDERED: Amoxicillin/Clavulanate K 875-125 MG Tab PO ONE (02:48)
== END 2022-06-13 16:30 | disposition home or self-care (01) ==
LOC: MW.ED 02:47
DX: J32.9 Chronic sinusitis, unspecified (principal)
CPT/HCPCS: 99283; A9270; 99282

== ENCOUNTER 2024-06-07 17:37 | Emergency (ER) | payer MEDICAID ==
[2024-06-07] MEDS ORDERED: Sodium Chloride 0.9% 2.5 ML Syringe FLUSH PRN (18:08)
[2024-06-07] MEDS ORDERED: Sodium Chloride 0.9% 10 ML Syringe FLUSH PRN (18:08)
[2024-06-07 18:21] LABS: BASOPHILS ABSOLUTE AUTO 0.08 K/uL (0.00-0.20); BASOPHILS PERCENT AUTO 0.6 % (0.0-1.0); EOSINOPHILS ABSOLUTE AUTO 0.36 K/uL (0.00-0.45); EOSINOPHILS PERCENT AUTO 2.6 % (0.0-6.0); HEMATOCRIT 44.4 % (37.0-47.0); HEMOGLOBIN 14.6 g/dL (12.0-16.0); IMMATURE GRAN ABSOLUTE AUTO 0.03 K/uL (0.00-0.05); IMMATURE GRAN PERCENT AUTO 0.2 % (0.0-0.4); LYMPHOCYTES ABSOLUTE AUTO 2.41 K/uL (1.00-4.80); LYMPHOCYTES PERCENT AUTO 17.3 % (24.0-44.0); MEAN CORPUSCULAR HEMOGLOBIN 28.2 pg (28.0-32.0); MEAN CORPUSCULAR HGB CONC 32.9 g/dL (32.0-36.0); MEAN CORPUSCULAR VOLUME 85.9 fL (83.0-99.0); MEAN PLATELET VOLUME 11.1 fL (9.4-12.3); MONOCYTES PERCENT AUTO 7.9 % (0.0-8.0); NEUTROPHILS ABSOLUTE AUTO 9.99 K/uL (1.80-7.70); NEUTROPHILS PERCENT AUTO 71.4 % (41.0-71.0); PLATELET COUNT,PLT 293 K/uL (150-400); RED BLOOD CELL COUNT 5.17 M/uL (4.10-5.30); WHITE BLOOD CELL COUNT,WBC 13.97 K/uL (3.9-11.3)
[2024-06-07 18:31] LABS: ALBUMIN 3.7 g/dL (3.4-5.0); CALCIUM 9.3 mg/dL (8.5-10.1); CARBON DIOXIDE,CO2 27.8 mmol/L (21.0-32.0); CREATININE 0.9 mg/dL (0.6-1.0); EST CRCL DRUG DOSING (CG) 83.42 mL/min; POTASSIUM,K 3.9 mmol/L (3.5-5.1); PROTEIN TOTAL,TP 7.3 g/dL (6.4-8.2)
[2024-06-07 18:32] LABS: BILIRUBIN TOTAL 0.2 mg/dL (0.2-1.0)
[2024-06-07] MEDS: Ampicillin/Sulbactam Na 3 GM in Sodium Chloride 0.9% 100 ML IV ONE (20:57)
[2024-06-07] MEDS: predniSONE 20 MG Tab PO ONE (20:58)
[2024-06-07 21:39] VITALS: BP 138/78; PULSE 78
== END 2024-06-07 21:39 | disposition home or self-care (01) ==
LOC: MW.ED 17:37
DX: R22.1 Localized swelling, mass and lump, neck (principal); Z75.8 Other problems related to medical facilities and other health care
CPT/HCPCS: 36415; 70491; 70491-26; 80053; 85025; 96365; 99284-25; A9270-GY; J0295; J3490

== ENCOUNTER 2025-02-20 10:33 | Emergency (ER) | payer MEDICAID ==
[2025-02-20] MEDS: diazePAM 2 MG Tab PO ONE (11:13)
[2025-02-20] MEDS: Sodium Chloride 0.9% 1,000 ML IV ONE (11:13)
[2025-02-20 11:17] LABS: BASOPHILS ABSOLUTE AUTO 0.04 K/uL (0.00-0.20); BASOPHILS PERCENT AUTO 0.4 % (0.0-1.0); EOSINOPHILS ABSOLUTE AUTO 0.04 K/uL (0.00-0.45); EOSINOPHILS PERCENT AUTO 0.4 % (0.0-6.0); HEMATOCRIT 46.8 % (37.0-47.0); HEMOGLOBIN 15.9 g/dL (12.0-16.0); IMMATURE GRAN ABSOLUTE AUTO 0.02 K/uL (0.00-0.05); IMMATURE GRAN PERCENT AUTO 0.2 % (0.0-0.4); LYMPHOCYTES ABSOLUTE AUTO 1.44 K/uL (1.00-4.80); LYMPHOCYTES PERCENT AUTO 13.5 % (24.0-44.0); MEAN CORPUSCULAR HEMOGLOBIN 28.8 pg (28.0-32.0); MEAN CORPUSCULAR VOLUME 84.8 fL (83.0-99.0); MEAN PLATELET VOLUME 10.2 fL (9.4-12.3); MONOCYTES ABSOLUTE AUTO 0.43 K/uL (0.00-0.80); NEUTROPHILS ABSOLUTE AUTO 8.66 K/uL (1.80-7.70); NEUTROPHILS PERCENT AUTO 81.5 % (41.0-71.0); PLATELET COUNT,PLT 279 K/uL (150-400); RED BLOOD CELL COUNT 5.52 M/uL (4.10-5.30); WHITE BLOOD CELL COUNT,WBC 10.63 K/uL (3.9-11.3)
[2025-02-20] MEDS: diazePAM 10 MG/2 ML Syringe IVPUSH ONE (11:21)
[2025-02-20 11:51] LABS: A/G RATIO 1.1 (0.9-1.6); ALANINE AMINOTRANSFERASE,ALT 20 IU/L (14-63); ALBUMIN 3.6 g/dL (3.4-5.0); ALKALINE PHOSPHATASE 93 U/L (46-116); ASPARTATE AMNIOTRANSFERASE,AST 17 IU/L (15-37); BILIRUBIN TOTAL 0.4 mg/dL (0.2-1.0); BLOOD UREA NITROGEN,BUN 10 mg/dL (7.0-18.0); CALCIUM 8.9 mg/dL (8.5-10.1); CARBON DIOXIDE,CO2 25.4 mmol/L (21.0-32.0); CHLORIDE,CL 101 mmol/L (98-107); CREATININE 0.9 mg/dL (0.6-1.0); EST CRCL DRUG DOSING (CG) 77.27 mL/min; ETHANOL BLOOD MEDICAL <3 mg/dL; GLUCOSE RANDOM 137 mg/dL (74-106); MAGNESIUM 1.8 mg/dL (1.8-2.4); POTASSIUM,K 4.1 mmol/L (3.5-5.1); PRO B-TYPE NATRIUR PEPT,BNPPRO 88 pg/mL (0-125); PROTEIN TOTAL,TP 6.9 g/dL (6.4-8.2); SODIUM,NA 136 mmol/L (136-145)
[2025-02-20 11:52] LABS: ESTIMATED GFR 76 mL/min (>60)
[2025-02-20] MEDS: Iopamidol 755 MG/ML 500 ML Multipack Bottle IVPUSH STA (12:24)
[2025-02-20 13:00] VITALS: BP 153/76; PULSE 88
[2025-02-20 13:01] LABS: APPEARANCE,URINE CLEAR; BILIRUBIN,URINE NEGATIVE (NEGATIVE); COLOR,URINE YELLOW; GLUCOSE,URINE NEGATIVE (NEGATIVE); KETONES,URINE NEGATIVE (NEGATIVE); LEUKOCYTE ESTERASE,URINE NEGATIVE (NEGATIVE); NITRITE,URINE NEGATIVE (NEGATIVE); OCCULT BLOOD,URINE NEGATIVE (NEGATIVE); PH,URINE 7.5 (5.0-8.0); PROTEIN,URINE NEGATIVE (NEGATIVE); UROBILINOGEN,URINE 0.2 EU/dL (<2.0)
[2025-02-20 13:10] LABS: AMPHETAMINES SCREEN, URINE PRESUMPTIVE POSITIVE (CUTOFF=500); BARBITURATE SCREEN,URINE NEGATIVE (CUTOFF=200); BENZODIAZEPINES SCREEN,URINE NEGATIVE (CUTOFF=150); BUPRENORPHINE SCREEN,URINE NEGATIVE (CUTOFF=10); METHADONE SCREEN, URINE NEGATIVE (CUTOFF=200); METHAMPHETAMINES SCREEN, URINE PRESUMPTIVE POSITIVE (CUTOFF=500); OXYCODONE SCREEN,URINE NEGATIVE (CUT0FF=100); PCP SCREEN,URINE NEGATIVE (CUTOFF=25); THC SCREEN,URINE 20 NG/ML NEGATIVE (CUTOFF=50)
== END 2025-02-20 13:26 | disposition home or self-care (01) ==
LOC: MW.ED 10:33
DX: R42 Dizziness and giddiness (principal); Z75.3 Unavailability and inaccessibility of health-care facilities
CPT/HCPCS: 36415; 70450; 70496; 70498; 71045; 80053; 80305; 80307; 81003; 83735; 83880; 85025; 93005; 96360; 99285; A9270; J7030; Q9967; 99284